=== PATIENT | female | born 1975 | race Hispanic/Latino ===

== ENCOUNTER 2017-05-14 08:30 | Inpatient (IN) | payer OTHER ==
[~2017-05-14] VITALS: Ht 147.3 cm; Wt 73.0 kg
[2017-05-14] VITALS (14 sets, daily range): BP systolic 105–124; BP diastolic 43–77
[~2017-05-14 08:30] MED LIST: FERR SULFATE325 MG PO; FERROUS SULF324 MG PO; FOLIC ACID1 MG PO; IBUPROFEN600 MG PO; PRE-NATAL PO; PRENATAL1 TA1 PO
[2017-05-14 08:51] LABS: URINE BILIRUBIN - DIPSTICK NEGATIVE (NEGATIVE); URINE BLOOD DIPSTICK LARGE (NEGATIVE); URINE COLOR YELLOW; URINE GLUCOSE - DIPSTICK NEGATIVE (NEGATIVE); URINE KETONE NEGATIVE (NEGATIVE); URINE LEUK ESTERASE TRACE (NEGATIVE); URINE NITRITE - DIPSTICK NEGATIVE (Negative); URINE PROTEIN - DIPSTICK NEGATIVE (NEG-TRACE); URINE SPECIFIC GRAVITY <=1.005; URINE UROBILINOGEN - DIPSTICK 0.2 E.U./dL (0.2)
[2017-05-14 08:53] LABS: URINE CLARITY CLOUDY
[2017-05-14 08:54] LABS: BARBITURATES NEGATIVE (NEGATIVE); COCAINE NEGATIVE (NEGATIVE); METHADONE NEGATIVE (NEGATIVE); OXCYCODONE NEGATIVE (NEGATIVE); TETRAHYDROCANNABIONOL NEGATIVE (NEGATIVE); TRICYLIC ANTIDEPRESSANTS NEGATIVE (NEGATIVE); URINE RBC 50-100 RBC/hpf (0-5); URINE WBC 0-2 WBC/hpf (0-5)
--- NOTE | 2017-05-14 09:08 | NUR ---
CONTRACTIONS NOTED EVERY 7 TO 8 MONUTES APART,PALPATING MILD. PATIENT CONTINUES TO DENY PAIN WITH SAME. SVE DONE TO DETERMINE STATUS OF CERVIX; CX POSTERIOR, ADMITS FINGER TIP TO OUTER OS, INNER OS CLOSED. SMALL AMOUNTS OF RED BLOOD ON GLOVES. WILL NOTIFY .
--- NOTE | 2017-05-14 10:18 | NUR ---
RESTING COMFORTABLY IN BED. CONTINUES TO HAVE IRREGULAR UTERINE ACTIVITY BUT CONTINUES TO DENY PAIN. AWAITING OB US GENESIS. NO CONCERNS VOICED AT THIS TIME.
--- NOTE | 2017-05-14 10:25 | NUR ---
OFF [facility] TO GO TO RADIOLOGY DEPT BY RN FOR OB US.
--- NOTE | 2017-05-14 11:07 | NUR ---
patient back from radiology dept with preliminary us report. to be notified.
--- NOTE | 2017-05-14 12:10 | NUR ---
dr wells on unit reviewing fhr tracing, record and us report.
--- NOTE | 2017-05-14 12:17 | NUR ---
sve done by md as charted. discusses plan of care with patient, who agrees.
--- NOTE | 2017-05-14 12:45 | NUR ---
iv access gained in rt hand. blood drwan from same. ivf to be started krissy.
[2017-05-14 13:19] LABS: ALBUMIN 3.5 g/dL (3.2-5.0); ALKALINE PHOSPHATASE 134 u/l (38-126); ANION GAP 13 (6-22 (CALC)); BILIRUBIN, TOTAL 0.8 mg/dL (0.0-1.4); BUN 10 mg/dL (7-17); BUN/CREATININE RATIO 21 (12-20 (CALC)); CALCIUM 8.8 mg/dL (8.4-10.2); CARBON DIOXIDE 20 mmol/l (22-30); CHLORIDE 103 mmol/l (95-108); CREATININE 0.5 mg/dL (0.5-1.0); GFR > 60 ML/MIN (>=60 (CALC)); GFR FOR AFR.AMER. > 60 ML/MIN (>=60 (CALC)); GLUCOSE 68 mg/dL (65-105); POTASSIUM 3.8 mmol/l (3.5-5.1); SGOT/AST 30 u/l (14-36); SGPT/ALT 36 u/l (9-52); SODIUM 133 mmol/l (137-146); TOTAL PROTEIN 6.7 g/dL (6.3-8.2)
[2017-05-14 13:20] LABS: HEMATOCRIT 36.2 % (37.0-47.0); IMMATURE GRANULOCYTES 0.5 % (0.0-1.0); MEAN CELL VOLUME 93.1 fL CALC (80.0-100.0); MEAN CORPUSCULAR HGB 30.8 pG CALC (26.0-32.0); MEAN CORPUSCULAR HGB CONC 33.1 g/L CALC (32.0-36.0); NEUT# 5.69 thou/uL (2.00-7.15); RED BLOOD COUNT 3.89 mill/uL (4.20-5.60)
--- NOTE | 2017-05-14 13:35 | NUR ---
ivb of lr commenced. preop meds explained and administered. see emar.
--- NOTE | 2017-05-14 13:55 | NUR ---
holt placed using sterile technique. clear urine returns via same. patient tolerated same well.
--- NOTE | 2017-05-14 14:00 | NUR ---
to or in wc by or staff for primary section. see delivery room record.
--- NOTE | 2017-05-14 17:00 | NUR ---
PATIENT TO ROOM FROM [facility] ON STRETCHER ACCOMAPNIED BY TEST SKEIN WINDER. TRANSFERRED TO BED USING Z SLIDER. PERICARE DONE. MADE COMFORTABLE. WATER GIVEN TO TAKE SIPS AND ADVANCE TOLERATED. SLAAS DRAINING CLEAR URINE. SCD'S IN PLACE. DENIES PAIN AT THIS TIME. CALL LIGHT WITHIN REACH TO CALL FOR ASSISTANCE PRN. PATIENT VERBALISE UNDERSTANDING. S/O AT BEDSIDE.
--- NOTE | 2017-05-14 18:00 | NUR ---
TOLERATING CLEAR LIQUIDS. SALAS DRAINING WELL.
--- NOTE | 2017-05-14 18:30 | NUR ---
MEDICATED FOR PAIN REQUESTED. NO OTHER CONCERNS AT THIS TIME.
--- NOTE | 2017-05-14 18:45 | NUR ---
BEDSIDE REPORT GIVEN TO LIZ THOMAS.
--- NOTE | 2017-05-14 19:00 | NUR ---
PT AWAKE AND ALERT, RESTING IN BED, VSS, IVF'S INFUSING ORDERED W/OUT DIFFICULTY, ASSESSMENT DONE- WNL, PT DENIES ANY CONCERNS AT THIS TIME, MEDICATED FOR PAIN RECENTLY, PT CONT ON BEDREST FOR POSTOP, ENCOURAGED TO CALL NURSE FOR ANY NEEDS OR CONCERNS- PT VERBALIZES UNDERSTANDING, CALL HAYDEN WITHIN REACH.
[2017-05-15] VITALS: BP 99/45
--- NOTE | 2017-05-15 | NUR ---
PT RESTING QUIETLY IN BED, VSS, JESÚS CARE DONE- SM LOCHIA AND NO CLOTS NOTED, PT REPOSITIONED SELF IN BED FOR COMFORT, IVF'S CONT INFUSING, PT DENIES ANY CONCERNS AT THIS TIME, WILL CONT TO MONITOR.
[2017-05-15 04:00] VITALS: BP 95/54
[2017-05-15 06:11] LABS: HEMATOCRIT 27.7 % (37.0-47.0); HEMOGLOBIN 9.2 g/dl (12.0-16.0); IMMATURE GRANULOCYTES 0.4 % (0.0-1.0); MEAN CELL VOLUME 93.3 fL CALC (80.0-100.0); MEAN CORPUSCULAR HGB CONC 33.2 g/L CALC (32.0-36.0); NEUT# 5.79 thou/uL (2.00-7.15); RED BLOOD COUNT 2.97 mill/uL (4.20-5.60)
--- NOTE | 2017-05-15 06:30 | NUR ---
PT RESTING QUIETLY IN BED W/EYES CLOSED- AROUSES EASILY, PT C/O DIZZINESS AND NAUSEA FROM MORPHINE OYSTER GROWER PUMP- REQUESTING FOR D/C OF THIS- D/C'D REQUESTED, PER PT- FEELING NEED TO VOID, PT DANGLED AT BEDSIDE- CONT HAVING SOME DIZZINESS, AFTER SEVERAL MINUTES- PT STATES DECREASE OF DIZZINESS, ASSISTED UP OOB X2 STAFF ASSIST TO BR- VOIDED W/OUT DIFFICULTY, ASSISTED BACK TO BED, PT C/O NAUSEA- HAD SMALL EMESIS- MEDICATED VIA IV FOR N/V. PT POSITIONED SELF IN BED FOR COMFORT, PT DENIES ANY OTHER NEEDS AT THIS TIME, REENCOURAGED TO CALL NURSE FOR ANY NEEDS OR CONCERNS, CALL HAYDEN LEFT AT SIDE AND WITHIN REACH.
--- NOTE | 2017-05-15 07:00 | NUR ---
RECEIVED CARE OF PT. RESTING IN BED WITH EYES CLOSED. VITAL SIGNS OBTAINED. PLAN OF CARE REVIEWED. PT ENCOURAGED TO COUGH AND DEEP BREATHE. INCENTIVE SPIROMETER INSTRUCTIONS GIVEN. PT RETURNED DEMO. VARICOSE VEINS NOTED ON LEFT LOWER EXTREMITY. PT STATES IT DOES NOT BOTHER HER TO WALK AND SHE HAS HAD IT PREVIOUS TO . ENCOURAGED TO AMBULATE AND CALL FOR ASSISTANCE NEEDED TO RESTROOM. DENIES S/S OF DEPRESSION. STATES SHE HAS NO PAIN, DENIES PAIN MEDICATION. PT WITH FACIAL GRIMMACING. @0730 PT ASSISTED OUT OF BED. NO VOID AT THIS TIME. ASSISTED BACK TO BED,CALL LIGHT WITHIN REACH.
[2017-05-15 07:30] VITALS: BP 97/52
--- NOTE | 2017-05-15 09:00 | NUR ---
PT ASSISTED OUT OF BED TO RESTROOM. VOIDED 200 ML OF YELLOW URINE. JESÚS CARE INSTRUCTIONS GIVEN, JESÚS CARE DONE BY PT. GOWN CHANGED. PT TO SIT UP IN CHAIR AT BEDSIDE. INSTRUCTED TO NOT CROSS LEGS. CALL LIGHT WITHIN REACH.
--- NOTE | 2017-05-15 09:25 | NUR ---
LINENS CHANGED. PT TRANSFERRED TO BED. DENIES PAIN MEDICATION.
[2017-05-15 11:30] VITALS: BP 106/59
[2017-05-15 16:00] VITALS: BP 118/73
--- NOTE | 2017-05-15 18:50 | NUR ---
REPORT GIVEN TO ONCOMING SHIFT.
--- NOTE | 2017-05-15 19:30 | NUR ---
PT AWAKE AND ALERT- RESTING IN BED, FAMILY IN RM VISITING, PT ASSESSMENT DONE- WNL, PT C/O PAIN- MEDICATED ORDERED, DENIES ANY OTHER NEEDS, ENCOURAGED TO CALL NURSE FOR ANY FURTHER NEEDS OR CONCERNS- PT VERBALIZES UNDERSTANDING.
[2017-05-15 21:00] VITALS: BP 106/67
--- NOTE | 2017-05-16 | NUR ---
PT SLEEPING QUIETLY IN BED, AROUSES EASILY, DENIES ANY CONCERNS OR NEEDS AT THIS TIME, WILL CONT TO MONITOR.
[2017-05-16 04:00] VITALS: BP 110/64
--- NOTE | 2017-05-16 06:00 | NUR ---
PT SLEEPING QUIETLY IN BED- AROUSES EASILY, DENIES PAIN OR ANY NEEDS AT THIS TIME, REENCOURAGED TO CALL NURSE FOR ANY NEEDS OR CONCERNS.
--- NOTE | 2017-05-16 07:55 | NUR ---
REPORT RECEIVED BY MARTHA BEDOLLA. PT IS AMBULATING IN THE ROOM AND DENIES ANY NEEDS AT THIS TIME.
--- NOTE | 2017-05-16 09:08 | NUR ---
AMBULATING IN ROOM. ADMITS TO MILD INCISIONAL PAIN. NO BM YET BUT PASSING FLATUS. NO OTHER CONCERNS AT THIS TIME. SEEN AND DISCHARGED BY .
[2017-05-16] MEDS ORDERED: LORTAB 7.57.5 MG PO (09:09)
--- NOTE | 2017-05-16 10:56 | NUR ---
DISCHARGE INSTRUCTIONS GIVEN, PRESCRIPTION OF LORTAB GIVEN, AND PT VERBALIZED UNDERSTANDING. PT DENIES ANY NEEDS AT THIS TIME.
--- NOTE | 2017-05-16 12:00 | NUR ---
PT IS SITTING IN CHAIR WITH NO S/S DISTRESS NOTED. PT DENIES ANY NEEDS AT THIS TIME. IN ROOM.
--- NOTE | 2017-05-16 12:37 | NUR ---
PT WENT HOME IN STABLE CONDITION VIA WHEELCHAIR TO CAR WITH AT SIDE.
== END 2017-05-16 12:37 | disposition home or self-care (01) | DRG 765 ==
LOC: OB 08:30 → OBOP 08:30 → OB 12:25
PROVIDERS: Obstetrics & Gynecology
PROC: 10D00Z1 Extraction of Products of Conception, Low, Open Approach (ICD-10-PCS; principal; 2017-05-14)
PROC: 0UB70ZZ Excision of Bilateral Fallopian Tubes, Open Approach (ICD-10-PCS; 2017-05-14)
DX: O41.03X0 Oligohydramnios, third trimester, not applicable or unspecified (principal); O36.5930 Maternal care for other known or suspected poor fetal growth, third trimester, not applicable or unspecified; O24.425 Gestational diabetes mellitus in childbirth, controlled by oral hypoglycemic drugs; Z37.0 Single live birth; Z3A.39 39 weeks gestation of pregnancy

== ENCOUNTER 2018-07-19 20:33 | Emergency (ER) | payer SELFPAY ==
[~2018-07-19] VITALS: Ht 147.3 cm; Wt 72.7 kg
[~2018-07-19 20:33] MED LIST changes: +LORTAB 7.57.5 MG PO
[2018-07-19 21:23] LABS: IMMATURE GRANULOCYTES 0.5 % (0.0-5.0); MEAN CORPUSCULAR HGB 29.3 pG CALC (26.0-32.0); NEUT# 11.06 thou/uL (2.00-7.15); RED BLOOD COUNT 3.99 mill/uL (4.20-5.60); RED CELL DISTRI WIDTH 14.4 % (11.5-15.5)
[2018-07-19 21:28] LABS: URINE BILIRUBIN - DIPSTICK NEGATIVE (NEGATIVE); URINE BLOOD DIPSTICK LARGE (NEGATIVE); URINE COLOR YELLOW; URINE GLUCOSE - DIPSTICK NEGATIVE (NEGATIVE); URINE KETONE NEGATIVE (NEGATIVE); URINE NITRITE - DIPSTICK NEGATIVE (Negative); URINE PH 7.5 (4.5-8.0); URINE PROTEIN - DIPSTICK 30 mg/dL (NEG-TRACE); URINE SPECIFIC GRAVITY <=1.005; URINE UROBILINOGEN - DIPSTICK 0.2 E.U./dL (0.2)
[2018-07-19 21:29] LABS: URINE LEUK ESTERASE LARGE (NEGATIVE)
[2018-07-19 21:31] LABS: HEMATOCRIT 35.5 % (37.0-47.0); HEMOGLOBIN 11.7 g/dl (12.0-16.0)
[2018-07-19 21:41] LABS: URINE RBC TNTC RBC/hpf (0-5); URINE WBC TNTC WBC/hpf (0-5)
[2018-07-19 21:42] LABS: URINE BACTERIA MODERATE hpf; URINE SQUAMOUS EPITHELIAL CELL FEW EPI/hpf (0-FEW)
[2018-07-19 21:43] LABS: ALKALINE PHOSPHATASE 67 u/l (38-126); ANION GAP 16 (6-22 (CALC)); BUN 11 mg/dL (7-17); BUN/CREATININE RATIO 20 (12-20 (CALC)); CARBON DIOXIDE 26 mmol/l (22-30); CHLORIDE 96 mmol/l (95-108); CREATININE 0.5 mg/dL (0.5-1.0); GFR > 60 ML/MIN (>=60 (CALC)); GFR FOR AFR.AMER. > 60 ML/MIN (>=60 (CALC)); POTASSIUM 3.5 mmol/l (3.5-5.1); SGOT/AST 23 u/l (14-36); SODIUM 135 mmol/l (137-146); TOTAL PROTEIN 7.6 g/dL (6.3-8.2)
[2018-07-19 21:52] LABS: ALBUMIN 4.3 g/dL (3.2-5.0)
[2018-07-19] MEDS ORDERED: CIPROFLOXACN500 MG PO (22:11)
[2018-07-19 22:38] VITALS: BP 103/58
== END 2018-07-19 22:38 | disposition home or self-care (01) | DRG 690 ==
LOC: ED 20:33
PROVIDERS: Family Medicine
DX: N12 Tubulo-interstitial nephritis, not specified as acute or chronic (principal); B96.20 Unspecified Escherichia coli [E. coli] as the cause of diseases classified elsewhere

== ENCOUNTER 2022-03-04 20:43 | Emergency (ER) | payer SELFPAY ==
[2022-03-04] VITALS (7 sets, daily range): BP systolic 113–144; BP diastolic 67–81
[~2022-03-04] VITALS: Ht 147.3 cm; Wt 62.4 kg
[~2022-03-04 20:43] MED LIST changes: +CIPROFLOXACN500 MG PO
[2022-03-04 22:22] LABS: HEMATOCRIT 35.3 % (37.0-47.0); HEMOGLOBIN 11.6 g/dl (12.0-16.0); IMMATURE GRANULOCYTES 0.1 % (0.0-5.0); MEAN CELL VOLUME 91.2 fL CALC (80.0-100.0); MEAN CORPUSCULAR HGB CONC 32.9 g/dL CAL (32.0-36.0); NEUT# 4.12 thou/uL (2.00-7.15); RED BLOOD COUNT 3.87 mill/uL (4.20-5.60); RED CELL DISTRI WIDTH 12.6 % (11.5-15.5)
[2022-03-04 22:36] LABS: ALBUMIN 4.3 g/dL (3.2-5.0); ALKALINE PHOSPHATASE 98 u/l (38-126); BUN 12 mg/dL (7-17); BUN/CREATININE RATIO 26 (12-20 (CALC)); CARBON DIOXIDE 22 mmol/l (22-30); CREATININE 0.5 mg/dL (0.5-1.0); GFR FOR AFR.AMER. > 60 ML/MIN (>=60 (CALC)); GFR OTHER RACES > 60 ML/MIN (>=60 (CALC)); SGOT/AST 39 u/l (14-36); TOTAL PROTEIN 8.1 g/dL (6.3-8.2)
[2022-03-04 22:37] LABS: ANION GAP 16 (6-22 (CALC)); BILIRUBIN, TOTAL 0.3 mg/dL (0.0-1.4); CHLORIDE 108 mmol/l (95-108); SODIUM 142 mmol/l (137-146)
[2022-03-04 22:47] LABS: MYOGLOBIN 21 ng/mL (0 - 62)
[2022-03-04 23:36] LABS: URINE BILIRUBIN - DIPSTICK NEGATIVE (NEGATIVE); URINE BLOOD DIPSTICK MODERATE (NEGATIVE); URINE COLOR YELLOW; URINE GLUCOSE - DIPSTICK NEGATIVE (NEGATIVE); URINE KETONE NEGATIVE (NEGATIVE); URINE LEUK ESTERASE NEGATIVE (NEGATIVE); URINE PROTEIN - DIPSTICK NEGATIVE (NEG-TRACE); URINE SPECIFIC GRAVITY <=1.005; URINE UROBILINOGEN - DIPSTICK 0.2 E.U./dL (0.2)
[2022-03-04 23:39] LABS: URINE NITRITE - DIPSTICK NEGATIVE (Negative)
[2022-03-04] MEDS ORDERED: MEDDOSEPAK PO (23:46)
[2022-03-04 23:47] LABS: URINE BACTERIA FEW hpf; URINE EPITHELIAL CELLS FEW EPI/hpf (0-FEW); URINE WBC 0-2 WBC/hpf (0-5)
[2022-03-05 00:18] VITALS: BP 118/69
== END 2022-03-04 23:55 | disposition home or self-care (01) | DRG 918 ==
LOC: ED 20:43
PROVIDERS: Emergency Medicine
DX: T54.91XA Toxic effect of unspecified corrosive substance, accidental (unintentional), initial encounter (principal); R06.02 Shortness of breath

== ENCOUNTER 2024-06-24 12:02 | Observation (INO) | payer SELFPAY ==
[~2024-06-24] VITALS: Ht 147.3 cm; Wt 60.6 kg
[2024-06-24] VITALS (19 sets, daily range): BP systolic 112–143; BP diastolic 67–88
[~2024-06-24 12:02] MED LIST changes: +MEDDOSEPAK PO
--- NOTE | 2024-06-24 12:19 | NUR ---
PATIENT PRESENTS WITH SOB. SHE STATES SHE WAS CLEANING YESTERDAY WITH BLEACH AND INHALED. SHE STATES SHE HAS BEEN SOB SINCE. NO DISTRESS NOTED. PSO2 100%
[2024-06-24] MEDS ORDERED: ALBUTEROL SULFATE 2.5 MG VIAL NEB ONE (12:25)
[2024-06-24] MEDS ORDERED: predniSONE 20 MG/TAB PO ONE (12:25)
[2024-06-24 12:33] LABS: BASO% 0.2 % (0-3); EOS% 2.6 % (0-8); HEMATOCRIT 39.5 % (37.0-47.0); HEMOGLOBIN 12.2 g/dl (12.0-16.0); IMMATURE GRANULOCYTES 0.2 % (0.0-5.0); LYMPH% 39.1 % (15-41); MEAN CELL VOLUME 94.7 fL CALC (80.0-100.0); MEAN CORPUSCULAR HGB 29.3 pG CALC (26.0-32.0); MEAN CORPUSCULAR HGB CONC 30.9 g/dL CAL (32.0-36.0); NEUT# 2.77 thou/uL (2.00-7.15); NEUT% 51.9 % (42-76); RED BLOOD COUNT 4.17 mill/uL (4.20-5.60); RED CELL DISTRI WIDTH 12.4 % (11.5-15.5)
--- NOTE | 2024-06-24 12:41 | NUR ---
BREATHING TREATMENT IN PROGRESS.
[2024-06-24 12:49] LABS: CREATININE 0.5 mg/dL (0.5-1.0); POTASSIUM 3.5 mmol/l (3.5-5.1)
--- NOTE | 2024-06-24 13:36 | NUR ---
OXYGEN SATURATION DROPPED TO 94% . OXYGEN AT 2L VIA NASAL CANNULA APPLIED TO THE PATIENT.
--- NOTE | 2024-06-24 14:01 | NUR ---
DR. MEDINA SPOKE WITH DR. ALVARES ABOUT ADMISSION TO MED-SURG. AWAING BED ASSIGNMENT. PATIENT REMAINS IN NO DISTRESS.
--- NOTE | 2024-06-24 15:29 | NUR ---
PATIENT ASLEEP. NO DISTRESS.
[2024-06-24] MEDS ORDERED: MAGNESIUM HYDROXIDE 30 ML UDC PO PRN (15:30)
[2024-06-24] MEDS ORDERED: IPRATROPIUM-Albuterol 0.5MG-2.5MG/3 ML NEB PRN (15:30)
[2024-06-24] MEDS ORDERED: ACETAMINOPHEN 325 MG/TAB PO PRN (15:30)
[2024-06-24] MEDS ORDERED: SODIUM CHLORIDE 0.9% 1,000 ML IV PRN (15:30)
--- NOTE | 2024-06-24 16:06 | NUR ---
REPORT RECEIVED FROM CHINYERE ALEGRIA RN
--- NOTE | 2024-06-24 16:07 | NUR ---
VERBAL REPORT GIVEN TO DIDIER WATKINSVING NURSE ON MED-SURG. PATIENT TRANSFERED AT THIS TIME.
--- NOTE | 2024-06-24 16:16 | NUR ---
PT ARRIVED TO MED/SURG ROOM 264 IN STABLE CONDITION VIA WC ACCOMPANIED BY MARTHA WHITLOCK;PT ASSISTED TO STANDING SCALE, WT AND VS OBTAINED BY LULU [place];PT COLOMBIAN SPEAKING AND TRANSLATION PROVIDED BY LULU [place].PT REPORTS CLEANING WITH BLEACH YESTERDAY AND REPORTS SOB EVERY SINCE;PT DENIES ANY CURRENT PAIN OR DISCOMFORTS,PAIN SCALE AND REPORTING EDUCATED;PT A&O X3, ORIENTED TO ROOM AND CALL LIGHT SYSTEM;ASSESSMENT COMPLETED;RESPIRATIONS EVEN AND UNLABORED ON O2 @ 2L VIA NC- PT IS NOT OXYGEN DEPENDENT; DIMINISHED LUNG SOUNDS NOTED;ABDOMEN SOFT ON PALPATION AND ACTIVE IN ALL 4 QUADRANTS, LAST BM 06/24/24;STRONG PEDAL PULSES;SKIN INTACT;#20G TO RAC FLUSHED AND PATENT NS TO BE STARTED AT 100ML/HR PER ORDER. ALLERGY BAND APPLIED TO RIGHT ARM;PT DENIES ANY ADDITIONAL NEEDS AND IS ENCOURAGED TO CALL FOR ASSISTANCE IF NEEDED;FALL PRECAUTIONS IN PLACE WITH BED IN THE LOWEST POSITION AND CALL LIGHT IN REACH;FREQUENT ROUNDS MADE.
--- NOTE | 2024-06-24 17:57 | NUR ---
PT MEDICATED WITH PRN TYLENOL 650MG PO FOR UPPER BACK PAIN RATING 3/10 ON THE PAIN SCALE
--- NOTE | 2024-06-24 20:00 | NUR ---
RECEIVED REPORT FORM DAYSHIFT NURSE. PT NOTED LAYING IN BED SEMI FOWLERS. PT IS ANGOLAN SPEAKING ONLY, A/OX3 AND ON RM AIR. PT IS AMBULATORY AND CONTINENT. NURSING ASSESSMENT COMPLETED, IV SITE APPEARS HEALTHY AND INTACT WITH IVF RUNNING PER EMAR. EDUCATED ON PLAN OF CARE AND MED SCHEDULE. CALL LIGHT WITHIN REACH AND SAFETY PRECAUTIONS IN PLACE.
[2024-06-24] MEDS ORDERED: ENOXAPARIN SODIUM 40 MG/0.4 ML SYR SC SCH (21:00)
[2024-06-24] MEDS ORDERED: methylPREDNISolone Sod Succ 40 MG/ML SDV IV SCH (22:00)
--- NOTE | 2024-06-25 00:24 | NUR ---
PT LAYING IN BED SLEEPING, PT HAD REQUESTED TO HAVE IV FLUIDS DISCONNECTED DUE TO INABILITY TO SLEEP. FLUIDS DISCONNECTED AND IV SALINE LOCKED. PT DENIES ANY N/V/P AT THIS TIME. CALL LIGHT WITHIN REACH AND SAFETY PRECAUTIONS IN PLACE.
[2024-06-25 03:54] VITALS: BP 105/68
[2024-06-25 06:49] VITALS: BP 112/72
[2024-06-25] MEDS ORDERED: PREDNISONE20 MG PO (07:35)
--- NOTE | 2024-06-25 07:45 | NUR ---
PT SITTING UP ON THE SIDE OF THE BED, PT A&O X3, PUPILS PERRL, RESP, EVEN AND UNLABORED, LUNG SOUNDS CLEAR, NORMAL S1 S2 HEART SOUNDS, STRONG RADIAL AND PEDAL PULSES, 20G RAC IV WITH FLUIDS INFUSING AT PRESCRIBED RATE, SAFETY MEASURES REINFORCED, CALL HAYDEN WITHIN REACH
--- NOTE | 2024-06-25 09:10 | NUR ---
Discharge instructions given. Patient verbalizes understanding of same. Discharged in stable condition via Ambulatory to Home with staff. All belongings sent with pt.
== END 2024-06-25 09:10 | disposition home or self-care (01) | DRG 918 ==
LOC: ED 12:02 → ED-I 13:35 → ED 13:58 → MS2 13:59
PROVIDERS: Family Medicine; ADMIT Internal Medicine; ATTEND Internal Medicine
DX: T54.91XA Toxic effect of unspecified corrosive substance, accidental (unintentional), initial encounter (principal); J68.0 Bronchitis and pneumonitis due to chemicals, gases, fumes and vapors; Y92.002 Bathroom of unspecified non-institutional (private) residence as the place of occurrence of the external cause; Z20.822 Contact with and (suspected) exposure to COVID-19
CPT/HCPCS: G0378; J1650